=== PATIENT | female | born 1955 ===

== ENCOUNTER → 2018-10-14 11:00 | Outpatient (CLI) | payer OTHER, MEDICARE, SELFPAY | DX: Z23 Encounter for immunization (principal) | CPT/HCPCS: 90471; 90662 ==

== ENCOUNTER → 2019-09-14 14:12 | Outpatient (CLI) | payer OTHER, MEDICARE, SELFPAY | DX: Z23 Encounter for immunization (principal) | CPT/HCPCS: 90471; 90686 ==

== ENCOUNTER → 2020-07-25 10:28 | Outpatient (CLI) | payer SELFPAY ==
--- NOTE | 2020-07-25 10:33 | DI.US.S_ITS ---
ULTRASOUND OF LEFT BREAST: 07/25/2020 CLINICAL: Pain, ecchymosis; Possible ruptured implant, hematoma. No prior exams were available for comparison. Color flow and real-time ultrasound of the left breast were performed. Jean Baptiste scale images of the real-time examination were reviewed. Incidental note of a benign 0.3 cm oval simple cyst in the left breast at 9 o'clock posterior depth 6 cm from the nipple. This is visualized superficial to the implant capsule. No evidence for abnormal fluid collection in the extracapsular or intracapsular space to suggest implant rupture. No suspicious solid mass lesion. No skin abnormalities. IMPRESSION: INCOMPLETE: NEEDS ADDITIONAL IMAGING EVALUATION There is no abnormality seen in the left breast to correspond with the area of clinical concern, pain, and tenderness in the upper inner quadrant. The left implant shows no evidence of rupture. However, given reported history of trauma and concern for implant rupture, a bilateral mammogram is recommended for further evaluation of the left implant. If there are still persistent concerns for implant rupture following mammographic evaluation, bilateral breast MRI can be considered at that time. Findings and recommendations were conveyed to the patient during today's examination. This exam was interpreted at Station ID: [id number]. Electronically Signed By: Donald Conley M.D. aty/:07/25/2020 17:00:38 letter sent: Additional Imaging Needed Ultrasound BI-RADS: 0 Indeterminate
== END ==
PROVIDERS: Referring Provider Surgery; Visit Provider Surgery
DX: R92.8 Other abnormal and inconclusive findings on diagnostic imaging of breast (principal); S20.02XA Contusion of left breast, initial encounter; N60.02 Solitary cyst of left breast; N64.4 Mastodynia; N64.89 Other specified disorders of breast; X58.XXXA Exposure to other specified factors, initial encounter; Z98.82 Breast implant status
CPT/HCPCS: 76642

== ENCOUNTER → 2020-12-15 07:52 | Outpatient (CLI) | payer OTHER, SELFPAY ==
[2020-12-15] MEDS: COVID-19 VACC(MODERNA-1)/PF 100 MCG/0.5 ML VIAL IM (07:56)
== END ==
PROVIDERS: Visit Provider Internal Medicine
DX: Z23 Encounter for immunization (principal)
CPT/HCPCS: 0011A; 91301

== ENCOUNTER → 2021-01-12 07:51 | Outpatient (CLI) | payer OTHER, SELFPAY ==
[2021-01-12] MEDS: COVID-19 VACC #2, MRNA(MOD) 100 MCG/0.5 ML VIAL IM (07:56)
== END ==
PROVIDERS: Visit Provider Internal Medicine
DX: Z23 Encounter for immunization (principal)
CPT/HCPCS: 0012A; 91301